=== PATIENT | female | born 1970 | race African-American/Black ===

== ENCOUNTER 2018-06-14 23:45 | Emergency (ER) | payer OTHER ==
[~2018-06-14] VITALS: Ht 167.6 cm; Wt 115.7 kg
--- NOTE | ~2018-06-14 | EKG ---
[place] [address] [facility] [place] [address] ELECTROCARDIOGRAM REPORT Name: KAITY MALDONADO Room #: DEP Edwin#: [id number] Admission: 06/14/18 Attend Phys: Discharge: 06/15/18 Date of : 66 Report #: [id number] THIS REPORT FOR: //name// [facility] ED Test Date: 2018-06-15 Test Time: 01:05:06 Pat Name: KAITY MALDONADO Department: Room: Gender: F Helpdesk Manager: CYNDIE : 1970 Requested By: Germaine Frey Order Number: [id number] MD: Roel Robbins Measurements Intervals [place] Rate: 70 P: 45 AL: 188 QRS: 18 QRSD: 80 T: 41 QT: 472 QTc: 510 Interpretive Statements Sinus rhythm Borderline prolonged QT interval No previous ECG available for comparison Electronically Signed On 06-15-2018 8:20:47 BANKRUPTCY JUDGE by Roel Robbins [email or web address] <ELECTRONICALLY SIGNED> By: Roel Robbins MD, [facility] 06/15/18 0820 [id number] Roel Robbins MD, FACC /EPI
[~2018-06-14 23:45] MED LIST: AMLODIPINE BESY10 MG PO; CLARITIN10 MG PO; COREG25 MG PO; COUMADIN 5 MG TA5 M1 PO; CYCLOBENZAPRINE5 MG PO; EPIVIR HBV PO; ERYTHROMYCIN E3.5 G1 OPHTHALMIC; FLONASE 0.05%50 MCG NASAL; HUMIRA CRO40 MG/0.8; HYDRALAZINE 5050 MG PO; LASIX 40 MG TAB40 M2 PO; LIPITOR40 MG PO; MS CONTIN15 MG; PHENERGAN 25 MG25 M1 PO; PRILOSEC OTC20 MG PO; RENVELA800 MG PO; TIVICAY50 MG PO; ZANTAC 150MG T150 MG PO; ZIAGEN 300 MG300 MG PO
[2018-06-15 00:49] LABS: HEMATOCRIT 32.3 % (37.0-47.0); HEMOGLOBIN 10.6 gm/dL (12.0-15.0); MCHC 32.7 g/dL (28.0-37.0); MCV 82.7 fL (80.0-100.0); RBC 3.91 mil/uL (4.20-5.00); RDW 16.1 % (10.5-14.5); WBC 5.8 thou/uL (4.0-11.0)
[2018-06-15 00:58] LABS: ANION GAP 10 mmol/L (7-16); BUN 64 mg/dL (7-18); CALCIUM 7.7 mg/dL (8.5-10.1); CHLORIDE 98 mmol/L (98-107); CO2 28 mmol/L (21-32); CREATININE 9.9 mg/dL (0.6-1.0); GLUCOSE 108 mg/dL (74-106); POTASSIUM 5.4 mmol/L (3.5-5.1); SODIUM 136 mmol/L (136-145)
[2018-06-15 01:07] LABS: LIPASE 311 U/L (73-393); SGOT 14 U/L (15-37); SGPT 10 U/L (30-65); TOTAL BILIRUBIN 0.4 mg/dL (<0.1-1.0); TOTAL PROTEIN 8.8 g/dL (6.4-8.2); TROPONIN-I <0.06 ng/mL (<0.06)
[2018-06-15] MEDS ORDERED: ONDANSETRON HCL4 M2 PO (01:45)
[2018-06-15 02:31] VITALS: BP 171/82
== END 2018-06-15 02:32 | disposition home or self-care (01) ==
LOC: ER 23:45
PROVIDERS: Student in an Organized Health Care Education/Training Program
DX: I12.0 Hypertensive chronic kidney disease with stage 5 chronic kidney disease or end stage renal disease (principal); N18.6 End stage renal disease; H04.123 Dry eye syndrome of bilateral lacrimal glands; F17.210 Nicotine dependence, cigarettes, uncomplicated; K50.90 Crohn's disease, unspecified, without complications; Z90.49 Acquired absence of other specified parts of digestive tract; Z88.6 Allergy status to analgesic agent